=== PATIENT | female | born 1955 | race Caucasian/White ===

== ENCOUNTER 2016-04-19 11:18 | Emergency (ER) | payer SELFPAY ==
[~2016-04-19] VITALS: Wt 90.9 kg
[~2016-04-19 11:18] MED LIST: FENO145T19 PO; GEMF600T PO; GLIM4TAB PO; LEVO150T67 PO; LOSA25TA5 PO; METF-406 PO
[2016-04-19] MEDS ORDERED: PROM5SYR2 PO (12:43)
[2016-04-19] MEDS ORDERED: CELE100C PO (12:43)
--- NOTE | 2016-04-19 12:58 | ERD ---
ER Documentation Chief Complaint Date/Time DATE: 04/19/16 TIME: 12:55 Chief Complaint R. UPPER BACK PAIN HPI Patient has had cough for 2 weeks. Complains of pain in her right upper back and right anterior chest area after she coughs. She thinks it is from the coughing she has no shortness of breath. She has a history of hypertension and takes Lotensin. No fevers no chills mucus is improved. ROS All systems reviewed and are negative except as per history of present illness. Medications Home Meds Active Scripts Celecoxib* (Celebrex*) 100 Mg Capsule, 100 MG PO BID, #14 CAP Prov:MANAN UW DO 04/19/16 Promethazine HCl/Codeine (Prometh-Codein 6.25-10 mg/5 ml) 5 Ml Syrup, 5 ML PO Q8 , #180 ML Prov:MANAN WU DO 04/19/16 Reported Medications Gemfibrozil* (Lopid*) 600 Mg Tablet, 600 MG PO BID, TAB 07/20/15 Losartan Potassium* (Losartan Potassium*) 25 Mg Tablet, 25 MG PO DAILY, TAB 07/20/15 Levothyroxine Sodium* (Levothyroxine Sodium*) 150 Mcg Tablet, 150 MCG PO BEFORE BREAKFAST, #30 TAB 07/20/15 Glimepiride* (Glimepiride*) 4 Mg Tablet, 4 MG PO BID WITH MEALS, TAB 07/20/15 Fenofibrate Nanocrystallized* (Fenofibrate*) 145 Mg Tablet, 145 MG PO DAILY, TAB 07/20/15 Metformin Hcl* (Metformin Hcl* ER) 1,000 Mg Tab.er.24, 1000 MG PO BID WITH MEALS , #30 TAB 07/20/15 Allergies Allergies: Coded Allergies: No Known Allergies (Verified Allergy, Unknown, 07/22/15) PMhx/Soc History of Surgery: Yes (HERNIA 2012) Anesthesia Reaction: No Hx Neurological Disorder: No Hx Respiratory Disorders: No Hx Cardiac Disorders: Yes (HTN) Hx Psychiatric Problems: No Hx Miscellaneous Medical Probl: Yes (HIGH CHOLESTROL) Hx Alcohol Use: No Hx Substance Use: No Hx Tobacco Use: No Physical Exam Vitals Vital Signs Date Time Temp Pulse Resp B/P Pulse Ox O2 Delivery O2 Flow Rate FiO2 04/19/16 11:32 97.7 60 20 186/82 98 Physical Exam Const: [] Head: Atraumatic Eyes: Normal Conjunctiva ENT: Normal External Ears, Nose and Mouth. Neck: Full range of motion..~ No meningismus. Resp: Clear to auscultation bilaterally no wheezes rhonchi or rales Cardio: Regular rate and rhythm, no murmurs Abd: Soft, non tender, non distended. Normal bowel sounds Skin: No petechiae or rashes Back: No midline or flank tenderness, right upper back as the location of her pain which is reducible with bilateral rotation but not tender to palpation. Right anterior chest that is not tender to palpation. Ext: No cyanosis, or edema Neur: Awake and alert Psych: Normal Mood and Affect Procedures/MDM I think this is likely a muscle sprain of her back and anterior chest from coughing so much. I doubt pneumothorax that she has no shortness of breath her pulse ox is normal. The pain is reproducible with bilateral rotation so this is likely musculoskeletal. Her pulse ox is normal she has no fever lung sounds are normal so I doubt pneumonia or pneumonitis. I think this is a costochondritis and a back sprain. We gave her pain medications for home and cough medications as well. ED precautions discussed follow-up with PCP. Departure Diagnosis: Primary Impression: Right-sided back pain Back pain location: thoracic back pain Chronicity: acute Qualified Code: M54.6 - Acute right-sided thoracic back pain Additional Impressions: Thoracic back sprain Encounter type: initial encounter Qualified Code: S23.9XXA - Thoracic back sprain, initial encounter Acute costochondritis Condition: Stable Patient Instructions: Back Pain (Acute Or Chronic) MANAN WU DO Apr 19, 2016 12:57
== END 2016-04-19 12:58 | disposition home or self-care (01) ==
LOC: FTE 11:18
DX: S23.9XXA Sprain of unspecified parts of thorax, initial encounter (principal); I10 Essential (primary) hypertension; E11.9 Type 2 diabetes mellitus without complications; X58.XXXA Exposure to other specified factors, initial encounter; Y92.9 Unspecified place or not applicable; Z79.84 Long term (current) use of oral hypoglycemic drugs
CPT/HCPCS: 99284